=== PATIENT | female | born 1970 | race Caucasian/White ===

== ENCOUNTER 2020-03-03 07:11 | Day surgery (SDC) | payer OTHER ==
[2020-03-03] MEDS ORDERED: Propofol 200 MG/20 ML SDV IV ONE (07:12)
[2020-03-03] MEDS ORDERED: Lidocaine 1% PF 2 ML SDV INJECT ONE (07:12)
[2020-03-03] MEDS ORDERED: Lactated Ringers 1,000 ML IV SCH (07:15)
[2020-03-03] MEDS ORDERED: Sodium Chloride 0.9% 10 ML Syringe FLUSH PRN (07:15)
--- NOTE | 2020-03-03 09:30 | PCM.OPNOTE ---
- General Post-Op/Procedure Note Date of Surgery/Procedure: 03/03/20 Operative Procedure(s): c scope with cold forcep biopsy Findings: 5 mm ascending colon polyp Pre Op Diagnosis: screening for colon cancer Post-Op Diagnosis: ascending colon polyp Anesthesia Technique: MAURICIO Primary Surgeon: Ronnell Rodriguez Anesthesia Provider: Ki Sol Pathology: colon polyp Complications: None Condition: Good Free Text/Narrative:: [id number] see dictation
--- NOTE | 2020-03-03 12:59 | OR ---
DATE OF OPERATION: 03/03/2020 SURGEON: Ronnell Rodriguez MD PROCEDURE PERFORMED: Colonoscopy with cold forceps biopsy. PREOPERATIVE DIAGNOSIS: Colon cancer screening. POSTOPERATIVE DIAGNOSIS: Polyp of the ascending colon. INDICATIONS FOR PROCEDURE: This is a 49-year-old white female who presents for her initial screening colonoscopy. She was offered and accepted same. DESCRIPTION OF PROCEDURE: After an excellent IV sedation was administered, digital rectal exam was performed. No marked abnormality was noted. Flexible colonoscope was inserted and advanced to the cecum. The prep was excellent. Following findings were noted: Ascending colon: Mid ascending colon, small 5 mm polyp, biopsied with cold biopsy forceps and submitted in one container. Transverse colon unremarkable. Descending colon unremarkable. Sigmoid and rectum unremarkable. Colon was deflated. Scope was removed. The patient will receive results via letter. /[id number] /MODL
== END 2020-03-03 10:17 | disposition home or self-care (01) ==
LOC: FB.SDS 07:11
PROVIDERS: ATTEND Surgery
DX: Z12.11 Encounter for screening for malignant neoplasm of colon (principal); D12.2 Benign neoplasm of ascending colon; E03.9 Hypothyroidism, unspecified; Z79.890 Hormone replacement therapy; Z98.890 Other specified postprocedural states; Z87.891 Personal history of nicotine dependence
CPT/HCPCS: 00812-QZ; 81025; 88305; J2001; J2704; J7120